=== PATIENT | female | born 1940 | race African-American/Black ===

== ENCOUNTER 2023-10-26 14:50 | Emergency (ER) | payer SELFPAY ==
[~2023-10-26] VITALS: Ht 152.4 cm; Wt 64.0 kg
[2023-10-26 15:00] VITALS: BP 132/82; PULSE 92; RESP 16; TEMP 98.1; O2SAT 100
== END 2023-10-26 18:21 | disposition left against medical advice (07) ==
LOC: ER 14:50
DX: S80.212A Abrasion, left knee, initial encounter (principal); S80.211A Abrasion, right knee, initial encounter; I10 Essential (primary) hypertension; V99.XXXA Unspecified transport accident, initial encounter; Y93.89 Activity, other specified; Y92.89 Other specified places as the place of occurrence of the external cause; Y99.8 Other external cause status
CPT/HCPCS: 99283